=== PATIENT | female | born 1995 | race Caucasian/White ===

== ENCOUNTER → 2016-11-05 | Outpatient (CLI) | payer BC ==
[~2016-11-05] VITALS: Ht 167.6 cm; Wt 68.3 kg
[~2016-11-05] MED LIST: ZYRTEC 10MG10 MG PO
[2016-11-05 13:52] VITALS: BP 149/97; PULSE 77
[2016-11-05 14:20] VITALS: BP 137/94; PULSE 75
== END ==
LOC: EDSEX 12:57 → COL.RAD 12:57
DX: M54.42 Lumbago with sciatica, left side (principal)
CPT/HCPCS: J3301

== ENCOUNTER → 2017-04-11 | Outpatient (CLI) | payer BC ==
[~2017-04-11] VITALS: Ht 167.6 cm; Wt 65.9 kg
[~2017-04-11] MED LIST changes: +MACROBID 1100 MG/CAP PO
[2017-04-11 12:00] VITALS: BP 149/97; PULSE 72
[2017-04-11 13:01] VITALS: BP 137/98; PULSE 74
--- NOTE | 2017-04-11 13:25 | NUR ---
Pt stands on legs but states only can feel the right leg. Left leg is weak and continues to be numb.
--- NOTE | 2017-04-11 13:45 | NUR ---
pt able to walk across floor without difficulty.
--- NOTE | 2017-04-11 13:50 | NUR ---
Pt out to car per wheelchair. Reports twinge of pain to low back. Bandaid clean dry and intact. Pt into car without assistance.
== END ==
LOC: COL.RAD 11:43
DX: M51.27 Other intervertebral disc displacement, lumbosacral region (principal); R20.0 Anesthesia of skin; R20.2 Paresthesia of skin
CPT/HCPCS: J3301

== ENCOUNTER 2017-08-30 16:42 | Emergency (ER) | payer BC ==
[~2017-08-30] VITALS: Ht 167.6 cm; Wt 68.2 kg
[~2017-08-30 16:42] MED LIST changes: -MACROBID 1100 MG/CAP PO
[2017-08-30 16:57] VITALS: BP 152/94; TEMP 99.9
[2017-08-30 17:38] LABS: COLLECTION METHOD CLEAN CATCH
[2017-08-30 17:44] LABS: MUCOUS Present /lpf; PH 5 (5-8); URINE APPEARANCE Hazy; URINE BACTERIA Rare /hpf; URINE BILIRUBIN Negative (NEGATIVE); URINE BLOOD Negative (NEGATIVE); URINE COLOR Yellow; URINE GLUCOSE Negative (NEGATIVE); URINE KETONE 2+ (NEGATIVE); URINE LEUKOCYTE ESTERASE 2+ (NEGATIVE); URINE NITRATE Negative (NEGATIVE); URINE PROTEIN(semi-quant) 1+ (NEGATIVE); URINE RBC 0-2 /hpf; URINE UROBILINOGEN Negative (NEGATIVE)
[2017-08-30 17:49] LABS: BASO % 0.6 % (0.0-2.0); GRAN # 4.1 (1.4-6.5); GRAN % 76.5 % (42.2-75.2); HEMATOCRIT 38.1 % (37.0-47.0); HEMOGLOBIN 12.5 g/dl (12.5-16.0); LYMPH # 0.7 (1.2-3.4); LYMPH % 13.7 % (20.0-51.0); MEAN CELL VOLUME 85 fl (80.0-100.0); MEAN CORPUSCULAR HEMOGLOBIN 28 pg (27.0-31.0); MEAN CORPUSCULAR HGB CONC 33 g/dl (33.0-37.0); MEAN PLATELET VOLUME 11.1 fl (7.4-10.4); MONO # 0.5 (0.1-0.6); MONO % 8.8 % (1.7-9.3); PLATELET COUNT 252 K/mm3 (130-400); RED BLOOD COUNT 4.47 M/mm3 (4.10-5.30); REDCELL DISTRIBUTION WIDTH-CV 12.3 % (11.5-14.5)
[2017-08-30 18:03] LABS: BILIRUBIN,TOTAL 0.5 mg/dL (0.0-1.0); C-REACTIVE PROTEIN 2.5 mg/dL (0.0-0.9); CALCIUM 9.3 mg/dL (8.4-10.2); CREATININE, serum 0.82 mg/dL (0.52-1.25); POTASSIUM 3.4 mmol/L (3.4-5.0); TOTAL PROTEIN 8.3 gm/dL (6.4-8.2)
[2017-08-30] MEDS ORDERED: MACROBID 1100 MG/CAP PO (18:20)
[2017-08-30 19:13] VITALS: PULSE 92
== END 2017-08-30 19:13 | disposition home or self-care (01) ==
LOC: COL.ER 16:42
PROVIDERS: Nurse Practitioner
DX: N39.0 Urinary tract infection, site not specified (principal); Z98.1 Arthrodesis status; Z98.890 Other specified postprocedural states
CPT/HCPCS: J1885; J7030